=== PATIENT | male | born 1985 ===

== ENCOUNTER → 2018-10-30 00:19 | Outpatient (REF) | payer OTHER, SELFPAY ==
[2018-11-02 08:45] LABS: Syphilis AB Cascading Reflex NEGATIVE (Negative)
[2018-11-03 18:13] LABS: Mitogen-NIL 7.84 IU/mL; NIL 0.03 IU/mL; QuantiFERON TB NEGATIVE (Negative); TB1-NIL < 0.01 IU/mL; TB2-NIL < 0.01 IU/mL
== END ==
LOC: LAB 00:19
PROVIDERS: Visit Provider Physician Assistant
DX: Z11.1 Encounter for screening for respiratory tuberculosis (principal)
CPT/HCPCS: 36415; 86480; 86780; 87591